=== PATIENT | male | born 1960 | race Caucasian/White ===

== ENCOUNTER 2016-12-07 09:00 | Emergency (ER) | payer SELFPAY ==
[~2016-12-07] VITALS: Ht 167.6 cm; Wt 90.0 kg
[2016-12-07 09:02] VITALS: BP 190/108; PULSE 70; RESP 20; TEMP 97.8; O2SAT 95
[2016-12-07 09:04] VITALS: BP 180/103
[2016-12-07] MEDS ORDERED: MUPI2%T TOPICAL (09:31)
--- NOTE | 2016-12-07 09:35 | PD ---
HPI Chief Complaint: Skin Problem Time Seen by Provider: 09:28 Travel History International Travel<30 days: No Contact w/Intl Traveler<30days: No Traveled to known affect area: No History of Present Illness HPI Patient comes in complaining of pruritic rash that began 2 days ago on his chest has since spread to his right upper extremity and left lower extremity. Patient states he's been using [id number] antibiotic ointment with no improvement of symptoms. Denies anything making it worse. Denies any fevers, chest pain or shortness of breath, nausea, vomiting, weight loss, or headaches. Denies being around anyone else with similar. PFSH Past Medical History Medical History: Denies Significant Hx Social History Tobacco Use: No Substance Use: No Allergies-Medications (Allergen,Severity, Reaction): Coded Allergies: vancomycin (Verified Allergy, Unknown, 12/07/16) Reported Meds & Prescriptions Reported Meds & Active Scripts Active Bactroban Topical (Mupirocin) 22 Gm Cream 1 Applic TOPICAL TID Review of Systems Except as stated in HPI: all other systems reviewed are Neg Physical Exam Narrative GENERAL: Well-developed, overly nourished, in no acute distress, and non-ill appearing. SKIN: Impetigo appearing lesions noted right anterior chest and right upper extremity. There is no crepitus, drainage, fluctuation, induration, or streaking. HEAD: Atraumatic. Normocephalic. EYES: Pupils equal and round. EOMI. No scleral icterus. No injection or drainage. ENT: No nasal bleeding or discharge. Mucous membranes pink and moist. NECK: Trachea midline. Supple. No nuclear rigidity. RESPIRATORY: No accessory muscle use. No respiratory distress. MUSCULOSKELETAL: No obvious deformities. No clubbing. No cyanosis. No edema. Full range of motion. NEUROLOGICAL: Awake and alert. No obvious cranial nerve deficits. Motor grossly within normal limits. Normal speech. PSYCHIATRIC: Appropriate mood and affect; insight and judgment normal. Data Data Last Documented VS Vital Signs Date Time Temp Pulse Resp B/P (MAP) Pulse Ox O2 Delivery O2 Flow Rate FiO2 12/07/16 09:04 180/103 (128) 12/07/16 09:02 97.8 70 20 95 Room Air MDM Medical Decision Making Medical Screen Exam Complete: Yes Emergency Medical Condition: Yes Differential Diagnosis Rash, allergic reaction, impetigo, cellulitis, scabies, other Narrative Course There were no blisters or bullae, target lesions, purpura or petechia, nor vesiculobullous or scarlatiniform lesions. The patient looks great and was non- ill appearing. There was no evidence to suggest scabies, cellulitis, folliculitis or abscess, Staph. Scalded Skin Syndrome, Toxic Shock, Toxic Epidermal necrolysis, Kawasaki, Measles, Rubella, cutaneous T cell lymphoma, Erythema Multiforme (minor or major). Plan of care was discussed with the patient and the patient is to follow up with their physician. The patient agreed with plan. The patient was found during their evaluation to have elevated blood pressures. The patient has no prior history of hypertension. The patient has no symptoms as well. The patient denied headache, changes in vision, nausea, vomiting, dizziness, weakness or loss of sensation. The patient denied and chest, back or abdominal pain. The patient also denied any shortness of breath, dyspnea on exertion, orthopnea or PND. The patient denies any edema to extremities. The patients blood pressures at discharge were at an acceptable level. I discussed with the patient that the standard of care is to not initiate antihypertensive medications at this time and for them to follow up with a primary care physician for continued outpatient evaluation, establish diagnosis of hypertension and potential initiation of blood pressure medications. Return warnings were given to the patient and the patient agreed with plan of care. Patient in no obvious distress upon re-evaluation. Patient was asked if they wanted to speak to my attending, which the patient did not wish to do at this time. Any questions/concerns in reference to patient diagnosis/condition discussed and clarified prior to patient's discharge. Reinforced sheer importance of close follow up with patient's primary physician or primary care clinic. Instructed patient to return to ED immediately, if symptoms return/ worsen. Pt showed understanding of above instructions. Further instructions and recommendations were detailed in discharge paperwork. Pt ambulated without difficulty out of ED at discharge. Diagnosis Primary Impression: Impetigo Additional Impression: Elevated blood pressure reading Patient Instructions: General Instructions, Hypertension (ED), Impetigo (ED) Additional Instructions: Follow-up with your primary care physician next week for reevaluation for re- evaluation and further evaluation of your elevated blood pressure noted here today. Take all medication as prescribed. Return to the emergency department if symptoms get worse. Med/Other Pt SpecificInfo: Prescription(s) given Scripts Mupirocin Topical (Bactroban Topical) 22 Gm Cream 1 APPLIC TOPICAL TID for Mgmt Bacterial Infection, #1 TUBE 0 Refills Prov: Sherita Day MD 12/07/16 Disposition: 01 DISCHARGE HOME Condition: Stable Palmer Massey Dec 07, 2016 09:35
== END 2016-12-07 15:18 | disposition home or self-care (01) ==
LOC: NETRI 09:00 → EDTENT 15:18
DX: L01.00 Impetigo, unspecified (principal); R03.0 Elevated blood-pressure reading, without diagnosis of hypertension; Z79.899 Other long term (current) drug therapy; Z88.5 Allergy status to narcotic agent
CPT/HCPCS: 99283

== ENCOUNTER 2016-12-11 07:00 | Emergency (ER) | payer SELFPAY ==
[~2016-12-11] VITALS: Ht 167.6 cm; Wt 90.0 kg
[~2016-12-11 07:00] MED LIST: MUPI2%T TOPICAL
[2016-12-11 07:02] VITALS: BP 158/95; PULSE 91; RESP 20; TEMP 98.7; O2SAT 93
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
[2016-12-11 08:14] LABS: AUTOMATED NEUTROPHIL # 6.6 TH/MM3 (1.8-7.7); BASOPHIL # 0.1 TH/MM3 (0-0.2); BASOPHIL % 0.6 % (0.0-2.0); EOSINOPHIL # 0.4 TH/MM3 (0-0.4); EOSINOPHIL % 4.5 % (0.0-4.0); HEMATOCRIT 47.3 % (39.0-51.0); LYMPHOCYTE # 1.2 TH/MM3 (1.0-4.8); MEAN CELL VOLUME 94.6 FL (80.0-100.0); MEAN CORPUSCULAR HEMOGLOBIN 31.9 PG (27.0-34.0); MEAN CORPUSCULAR HGB CONC 33.8 % (32.0-36.0); MONO % 8.2 % (0.0-8.0); NEUT % 73.7 % (16.0-70.0); PLATELET COUNT 172 TH/MM3 (150-450); WHITE BLOOD COUNT 8.9 TH/MM3 (4.0-11.0)
[2016-12-11 08:18] LABS: HEMO FLAGS AUTO DIFF
[2016-12-11 08:35] LABS: ALT (GPT) 24 U/L (12-78); ANION GAP 8 MEQ/L (5-15); AST (GOT) 36 U/L (15-37); BICARBONATE 26.1 MEQ/L (21.0-32.0); BLOOD UREA NITROGEN 30 MG/DL (7-18); CHLORIDE 107 MEQ/L (98-107); GLOMERULAR FILTRATION RATE 63 ML/MIN (>89); SODIUM (NA) 141 MEQ/L (136-145)
[2016-12-11 08:36] LABS: ALKALINE PHOSPHATASE 86 U/L (45-117); TOTAL BILIRUBIN ADULT 0.7 MG/DL (0.2-1.0)
[2016-12-11 08:51] LABS: SCAN/DIFF AUTO DIFF CONFIRMED
[2016-12-11] MEDS ORDERED: BACT800T5 PO (09:04)
[2016-12-11] MEDS ORDERED: CEPH-460 PO (09:04)
[2016-12-11] MEDS ORDERED: CLINDAMYCIN INJ 600 MG in SODIUM CHLORIDE 0.9% INJ 100 ML IV ONE (09:15)
[2016-12-11 10:09] VITALS: BP 146/90; PULSE 88; RESP 18; TEMP 98.3; O2SAT 96
== END 2016-12-11 10:34 | disposition home or self-care (01) ==
LOC: NEPE 07:00
DX: L03.114 Cellulitis of left upper limb (principal); F17.200 Nicotine dependence, unspecified, uncomplicated
CPT/HCPCS: 80053; 83605; 85025; 96365

== ENCOUNTER 2016-12-29 06:49 | Emergency (ER) | payer SELFPAY ==
[~2016-12-29] VITALS: Ht 167.6 cm; Wt 84.0 kg
[~2016-12-29 06:49] MED LIST changes: +BACT800T5 PO; +CEPH-460 PO
[2016-12-29 06:51] VITALS: BP 156/83; PULSE 80; RESP 16; TEMP 98.1; O2SAT 95
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
[2016-12-29] MEDS ORDERED: PROPARACAINE HCL 0.5% OPHT SOLN 15 ML BTL RIGHT EYE ONE (07:15)
[2016-12-29] MEDS ORDERED: FLUORESCEIN SOD 1 MG STRIP RIGHT EYE ONE (07:15)
[2016-12-29] MEDS ORDERED: IBUP800T23 PO (07:23)
[2016-12-29] MEDS ORDERED: ERYTOIN10 LEFT EYE (07:23)
== END 2016-12-29 07:52 | disposition home or self-care (01) ==
LOC: NEPD 06:49
DX: T26.42XA Burn of left eye and adnexa, part unspecified, initial encounter (principal); F17.200 Nicotine dependence, unspecified, uncomplicated; X08.8XXA Exposure to other specified smoke, fire and flames, initial encounter; Z88.5 Allergy status to narcotic agent
CPT/HCPCS: 99283